=== PATIENT | female | born 1955 | race Caucasian/White ===

== ENCOUNTER 2019-11-24 14:40 | Emergency (ER) | payer OTHER ==
[~2019-11-24] VITALS: Ht 154.9 cm; Wt 81.8 kg
[2019-11-24] MEDS ORDERED: ATOR20TA86 PO (15:10)
[2019-11-24] MEDS ORDERED: CHOL100018 PO (15:10)
[2019-11-24] MEDS ORDERED: ACET-66 PO (15:10)
[2019-11-24] MEDS ORDERED: LOSA50TA37 PO (15:10)
[2019-11-24] MEDS ORDERED: HYDR-1475 PO (15:10)
[2019-11-24] MEDS ORDERED: DICL25 PO (15:10)
[2019-11-24] MEDS ORDERED: AMLO-258 PO (15:10)
[2019-11-24 17:01] LABS: BASOPHILS % (AUTO) 0.4 % (0.0-2.0); EOSINOPHILS % (AUTO) 4.5 % (1.0-6.0); HEMATOCRIT 32.5 % (36-46); HEMOGLOBIN 10.7 g/dL (12.0-16.0); LYMPHOCYTES # (AUTO) 2.9 K/uL (1.0-4.8); LYMPHOCYTES % (AUTO) 30.1 % (22.0-44.0); MEAN CORPUSCULAR HEMOGLOBIN 28.2 pg (26.0-34.0); MEAN CORPUSCULAR VOLUME 86 fL (80-100); MONOCYTES % (AUTO) 10.7 % (2.0-9.0); NEUTROPHILS # (AUTO) 5.2 K/uL (1.8-7.7); NEUTROPHILS % (AUTO) 54.3 % (40.0-70.0); PLATELET COUNT (AUTO) 201 K/uL (150-450); RED BLOOD CELL COUNT(AUTO) 3.81 MIL/uL (4.00-5.20)
[2019-11-24 17:08] LABS: APPEARANCE,URINE CLEAR (CLEAR); BILIRUBIN,URINE NEGATIVE (NEGATIVE); GLUCOSE, URINE (UA) NEGATIVE (NEGATIVE); KETONES,URINE NEGATIVE (NEGATIVE); LEUKOCYTE ESTERASE ,URINE NEGATIVE (NEGATIVE); NITRATE,URINE NEGATIVE (NEGATIVE); OCCULT BLOOD,URINE NEGATIVE (NEGATIVE); PROTEIN,URINE NEGATIVE (NEGATIVE)
[2019-11-24 17:21] LABS: CALCIUM, TOTAL 9.2 mg/dL (8.8-10.5); CREATININE 1.12 mg/dL (0.60-1.30); POTASSIUM 3.4 mmol/L (3.5-5.1)
[2019-11-24 17:27] LABS: ALBUMIN 3.6 g/dL (3.4-5.0); BILIRUBIN,TOTAL 0.4 mg/dL (0.1-1.0); TOTAL PROTEIN, SERUM 7.2 g/dL (6.4-8.2)
[2019-11-24 17:30] LABS: RBC,URINE None Seen /HPF (0-2); WBC,URINE 0-2 /HPF (0-5)
[2019-11-24 17:31] LABS: BACTERIA,URINE None Seen /HPF (None Seen); SQUAMOUS EPITHELIAL CELL,UR Few /LPF (None Seen)
[2019-11-24] MEDS ORDERED: ACETAMINOPHEN 325 MG TABLET PO ONE (18:15)
[2019-11-24 18:24] VITALS: BP 151/63
== END 2019-11-24 18:39 | disposition home or self-care (01) ==
LOC: EMS 14:47
DX: M54.5 Low back pain (principal); M79.671 Pain in right foot; M79.672 Pain in left foot
CPT/HCPCS: 74176